=== PATIENT | male | born 1965 | race Caucasian/White ===

== ENCOUNTER 2024-04-20 10:33 | Emergency (ER) | payer OTHER, MEDICAID ==
[~2024-04-20] VITALS: Wt 70.3 kg
[2024-04-20] MEDS ORDERED: Midazolam Hydrochloride 2 MG/2 ML VIAL IM ONE (11:05)
== END 2024-04-20 17:45 | disposition left against medical advice (07) ==
LOC: ED 10:33
DX: R45.1 Restlessness and agitation (principal); T50.995A Adverse effect of other drugs, medicaments and biological substances, initial encounter; Z53.29 Procedure and treatment not carried out because of patient's decision for other reasons; Y92.009 Unspecified place in unspecified non-institutional (private) residence as the place of occurrence of the external cause

== ENCOUNTER 2024-04-28 23:49 | Emergency (ER) | payer OTHER, MEDICAID ==
[~2024-04-28] VITALS: Ht 177.8 cm; Wt 79.4 kg
[2024-04-28] MEDS ORDERED: Thiamine 200 MG/2 ML VIAL IV ONE (23:55)
[2024-04-28] MEDS ORDERED: SODIUM CHLORIDE 0.9% 1,000 ML IV ONE (23:55)
[2024-04-29 00:14] LABS: BASO # 0.1 10*3/uL (0.0-0.1); BASO % 0.7 % (0.0-1.0); EOS # 0.1 10*3/uL (0.0-0.4); EOS % 1.1 % (1.0-4.0); HEMATOCRIT 37.6 % (42.0-52.0); LYMPH # 2.6 10*3/uL (1.3-4.4); LYMPH % 29.8 % (27.0-41.0); MEAN CELL VOLUME 102.2 fl (80.0-94.0); MEAN CORPUSCULAR HGB 35.9 pg (27.0-31.0); MEAN CORPUSCULAR HGB CONC 35.1 g/dl (33.0-37.0); MEAN PLATELET VOLUME 10.3 fl (9.6-12.3); MONO # 0.5 10*3/uL (0.1-1.0); MONO % 5.6 % (3.0-9.0); NEUT # 5.5 10*3/uL (2.3-7.9); NEUT % 62.6 % (47.0-73.0); PLATELET COUNT AUTOMATED 181 10*3/uL (130-400); RED BLOOD COUNT 3.68 10*6/uL (4.50-5.90); RED CELL DISTRI WIDTH 13.3 % (0-14.5); WHITE BLOOD COUNT 8.9 10*3/uL (4.8-10.8)
[2024-04-29 00:53] LABS: BUN 6 mg/dl (9-23); CHLORIDE 103 mmol/L (98-107); POTASSIUM 3.4 mmol/L (3.4-5.1)
[2024-04-29 00:55] LABS: ETHYL ALCOHOL 305.3 mg/dl (<3)
[2024-04-29] MEDS ORDERED: MAGNESIUM OXIDE 400 MG TAB PO ONE (04:45)
== END 2024-04-29 05:04 | disposition home or self-care (01) ==
LOC: ED 23:49
PROVIDERS: Internal Medicine
DX: S01.112A Laceration without foreign body of left eyelid and periocular area, initial encounter (principal); E87.1 Hypo-osmolality and hyponatremia; E83.42 Hypomagnesemia; F10.129 Alcohol abuse with intoxication, unspecified; W18.39XA Other fall on same level, initial encounter; Y93.89 Activity, other specified; Y92.89 Other specified places as the place of occurrence of the external cause; Y99.8 Other external cause status; Y90.8 Blood alcohol level of 240 mg/100 ml or more

== ENCOUNTER 2024-05-01 16:40 | Emergency (ER) | payer OTHER, MEDICAID ==
[~2024-05-01] VITALS: Ht 182.8 cm; Wt 70.3 kg
== END 2024-05-01 17:36 | disposition home or self-care (01) ==
LOC: ED 16:40
DX: Z00.00 Encounter for general adult medical examination without abnormal findings (principal)

== ENCOUNTER 2024-05-01 20:38 | Emergency (ER) | payer OTHER, MEDICAID ==
[~2024-05-01] VITALS: Ht 172.7 cm; Wt 78.0 kg
[2024-05-01 21:02] LABS: BASO # 0.1 10*3/uL (0.0-0.1); BASO % 1.3 % (0.0-1.0); EOS % 0.6 % (1.0-4.0); HEMATOCRIT 42.9 % (42.0-52.0); LYMPH % 28.4 % (27.0-41.0); MEAN CELL VOLUME 104.6 fl (80.0-94.0); MEAN CORPUSCULAR HGB 36.3 pg (27.0-31.0); MEAN CORPUSCULAR HGB CONC 34.7 g/dl (33.0-37.0); MEAN PLATELET VOLUME 10.5 fl (9.6-12.3); MONO # 0.6 10*3/uL (0.1-1.0); MONO % 8.5 % (3.0-9.0); NEUT # 4.3 10*3/uL (2.3-7.9); NEUT % 61.1 % (47.0-73.0); PLATELET COUNT AUTOMATED 126 10*3/uL (130-400); RED CELL DISTRI WIDTH 13.2 % (0-14.5)
[2024-05-01 21:19] LABS: CHLORIDE 104 mmol/L (98-107); ETHYL ALCOHOL 267.8 mg/dl (<3); LIPASE 27 U/L (12-53); POTASSIUM 3.5 mmol/L (3.4-5.1)
[2024-05-01 21:21] LABS: BUN < 5 mg/dl (9-23)
== END 2024-05-01 21:53 ==
LOC: ED 20:38
PROVIDERS: Internal Medicine
DX: F10.129 Alcohol abuse with intoxication, unspecified (principal); Z04.6 Encounter for general psychiatric examination, requested by authority; R53.1 Weakness; Z79.899 Other long term (current) drug therapy; Y90.8 Blood alcohol level of 240 mg/100 ml or more